=== PATIENT | female | born 2000 | race Hispanic/Latino ===

== ENCOUNTER 2022-02-12 22:12 | Emergency (ER) | payer OTHER ==
[~2022-02-12] VITALS: Ht 149.9 cm; Wt 57.6 kg
[~2022-02-12 22:12] MED LIST: PRENATAL FORMU1 EAC1 PO
[2022-02-12] MEDS ORDERED: CLEOCIN HCL300 MG PO (23:55)
== END 2022-02-13 00:26 | disposition home or self-care (01) ==
LOC: ED 22:12
DX: K04.7 Periapical abscess without sinus (principal); K01.1 Impacted teeth; Z88.0 Allergy status to penicillin
CPT/HCPCS: 64400; 99282-25; A9270